=== PATIENT | male | born 1965 | race Caucasian/White ===

== ENCOUNTER 2022-05-09 13:17 | Inpatient (IN) | payer BC ==
[~2022-05-09] VITALS: Ht 185.4 cm; Wt 78.0 kg
[2022-05-09] MEDS ORDERED: SODIUM CHLORIDE 0.9% 500ML 500 ML IV ONE (13:30)
[2022-05-09 13:54] LABS: BASOPHILS % 0.5 % (0.0-1.0); EOSINOPHILS # (AUTO) 0.5 (0.0-0.4); EOSINOPHILS % 5.6 % (0.0-6.0); HEMOGLOBIN 15.5 g/dL (14.0-18.0); LYMPHOCYTES % 25.3 % (18.0-39.1); MEAN CORPUSCULAR HEMOGLOBIN 30.3 pg (28-32); MEAN CORPUSCULAR VOLUME 97.8 fL (81-99); MONOCYTES # (AUTO) 0.5 (0.2-0.8); MONOCYTES % 6.4 % (4.4-11.3); PLATELET COUNT 272 x10e3/uL (140-360); RED BLOOD COUNT 5.11 x10e6/uL (4.3-5.7); RED CELL DISTRIBUTION WIDTH 12.4 % (11.7-14.4)
[2022-05-09 13:59] LABS: INR 0.97; PROTHROMBIN TIME 13.1 seconds (11.9-14.5)
[2022-05-09 14:00] LABS: PARTIAL THROMBOPLASTIN TIME 32.3 seconds (23.8-35.5)
[2022-05-09 14:11] LABS: ANION GAP 14.2 mmol/L (8-16); CALCIUM 9.4 mg/dL (8.4-10.2); CREATININE, SERUM 0.85 mg/dL (0.72-1.25); MAGNESIUM 2.1 MG/DL (1.3-2.1); POTASSIUM 4.2 mmol/L (3.5-5.1)
[2022-05-09 14:30] LABS: CLARITY,URINE HAZY (CLEAR); COLOR,URINE YELLOW (YELLOW); KETONES,URINE NEGATIVE (NEGATIVE); LEUKOCYTE ESTERASE ,URINE NEGATIVE (NEGATIVE); NITRITE,URINE NEGATIVE (NEGATIVE); PROTEIN,URINE DIPSTICK NEGATIVE (NEGATIVE)
[2022-05-09 14:31] LABS: BACTERIA,URINE FEW /HPF; EPITHELIAL CELLS,URINE FEW /LPF; RBC,URINE 0-5 /HPF (0-5); URINE UROBILINOGEN 0.2 mg/dL (0.2 - 1); WBC,URINE (MAN) 0-5 /HPF (0-5)
[2022-05-09 16:06] LABS: CREATINE KINASE MB 0.9 ng/mL (0-5.0)
[2022-05-09 17:15] VITALS: BP 123/78
[2022-05-09 17:17] VITALS: BP 123/78
[2022-05-09 17:27] VITALS: BP 123/78
[2022-05-09] MEDS ORDERED: CARVEDILOL3.125 MG PO (17:27)
[2022-05-09] MEDS ORDERED: PROVENTIL HFA6.7 GM INH (17:27)
[2022-05-09] MEDS ORDERED: NITROGLYCERIN0.4 MG SL (17:27)
[2022-05-09] MEDS ORDERED: ROSUVASTATIN CA40 MG PO (17:27)
[2022-05-09] MEDS ORDERED: LOSARTAN POTASS25 MG PO (17:27)
[2022-05-09] MEDS ORDERED: ASPIRIN EC81 MG PO (17:27)
[2022-05-09] MEDS ORDERED: CLOPIDOGREL75 MG PO (17:27)
[2022-05-09] MEDS: FAMOTIDINE 20 MG/2 ML VIAL IV SCH (17:32)
[2022-05-09] MEDS: METOPROLOL TARTRATE 25 MG TAB PO SCH (17:33)
[2022-05-09 19:25] VITALS: BP 141/86
[2022-05-09 20:42] VITALS: BP 141/86
[2022-05-09] MEDS ORDERED: POLYETHYLENE GLYCOL 3350 17 GM PACK PO PRN (22:30)
[2022-05-09] MEDS ORDERED: ONDANSETRON HCL INJ 2MG/ML 2ML 2 MG/ML VIAL IV PRN (22:30)
[2022-05-09] MEDS ORDERED: HYDRALAZINE HCL 20 MG/ML VIAL IV PRN (22:30)
[2022-05-09] MEDS ORDERED: ACETAMINOPHEN 325 MG TAB PO PRN (22:30)
[2022-05-10] VITALS (7 sets, daily range): BP systolic 125–145; BP diastolic 77–87
[2022-05-10] MEDS: METOPROLOL TARTRATE 25 MG TAB PO SCH ×3 (03:10→21:18)
[2022-05-10] MEDS: FAMOTIDINE 20 MG/2 ML VIAL IV SCH (04:28)
[2022-05-10 05:56] LABS: BASOPHILS # (AUTO) 0.1 (0.0-0.1); BASOPHILS % 0.6 % (0.0-1.0); EOSINOPHILS # (AUTO) 0.4 (0.0-0.4); EOSINOPHILS % 4.5 % (0.0-6.0); HEMATOCRIT 44.7 % (38.2-49.6); HEMOGLOBIN 14.1 g/dL (14.0-18.0); LYMPHOCYTES # (AUTO) 2.5 (1.0-3.2); LYMPHOCYTES % 26.2 % (18.0-39.1); MEAN CORPUSCULAR HEMOGLOBIN 30.3 pg (28-32); MEAN CORPUSCULAR HGB CONC 31.5 g/dL (31-35); MEAN CORPUSCULAR VOLUME 95.9 fL (81-99); MONOCYTES # (AUTO) 0.6 (0.2-0.8); MONOCYTES % 6.5 % (4.4-11.3); NEUTROPHILS % 61.9 % (38.7-80.0); PLATELET COUNT 251 x10e3/uL (140-360); RED BLOOD COUNT 4.66 x10e6/uL (4.3-5.7); RED CELL DISTRIBUTION WIDTH 12.2 % (11.7-14.4)
[2022-05-10 06:19] LABS: ALBUMIN 3.4 g/dL (3.5-5.0); CALCIUM 8.7 mg/dL (8.4-10.2); CHOL/HDL RATIO 4.3 (3.9-4.7); CREATININE, SERUM 0.77 mg/dL (0.72-1.25)
[2022-05-10 06:52] LABS: CREATINE KINASE MB 0.7 ng/mL (0-5.0)
[2022-05-10 07:07] LABS: PHOSPHORUS 3.1 MG/DL (2.3-4.7)
[2022-05-10] MEDS: ASPIRIN 81 MG ENTERIC COATED PO SCH (07:26)
[2022-05-10] MEDS: FAMOTIDINE 20 MG TAB PO SCH ×2 (07:26→16:08)
[2022-05-10 07:27] LABS: THYROID STIMULATING HORMONE 2.302 uIU/mL (0.350-4.940)
[2022-05-10] MEDS: DOCUSATE SODIUM 100 MG CAP PO SCH ×2 (07:27→16:08)
[2022-05-10] MEDS: NICOTINE 14 MG/EA PATCH TOP SCH (08:43)
[2022-05-10] MEDS: CLOPIDOGREL BISULFATE 75 MG TAB PO SCH (08:48)
[2022-05-10] MEDS ORDERED: REGADENOSON 0.4 MG/5 ML SYR IV ONE (09:49)
[2022-05-10] MEDS: SODIUM CHLORIDE 0.9% 1000ML 1,000 ML IV SCH (18:24)
[2022-05-11] VITALS: BP 141/90
[2022-05-11 05:34] LABS: BASOPHILS # (AUTO) 0.1 (0.0-0.1); BASOPHILS % 0.7 % (0.0-1.0); EOSINOPHILS # (AUTO) 0.5 (0.0-0.4); EOSINOPHILS % 5.2 % (0.0-6.0); HEMATOCRIT 42.1 % (38.2-49.6); HEMOGLOBIN 14.3 g/dL (14.0-18.0); LYMPHOCYTES # (AUTO) 2.6 (1.0-3.2); LYMPHOCYTES % 27.5 % (18.0-39.1); MEAN CORPUSCULAR HEMOGLOBIN 30.4 pg (28-32); MEAN CORPUSCULAR VOLUME 89.6 fL (81-99); MONOCYTES # (AUTO) 0.7 (0.2-0.8); MONOCYTES % 6.8 % (4.4-11.3); NEUTROPHILS # (AUTO) 5.7 (2.1-6.9); NEUTROPHILS % 59.5 % (38.7-80.0); PLATELET COUNT 245 x10e3/uL (140-360); RED CELL DISTRIBUTION WIDTH 12.3 % (11.7-14.4)
[2022-05-11 05:46] VITALS: BP 133/81
[2022-05-11 06:04] LABS: ANION GAP 14.7 mmol/L (8-16); CALCIUM 8.6 mg/dL (8.4-10.2); CREATININE, SERUM 0.82 mg/dL (0.72-1.25); POTASSIUM 3.7 mmol/L (3.5-5.1)
[2022-05-11] MEDS: SODIUM CHLORIDE 0.9% 1000ML 1,000 ML IV SCH (07:15)
[2022-05-11 08:25] VITALS: BP 134/78
[2022-05-11] MEDS: NICOTINE 14 MG/EA PATCH TOP SCH (08:54)
[2022-05-11] MEDS: DOCUSATE SODIUM 100 MG CAP PO SCH ×2 (08:54→16:05)
[2022-05-11] MEDS: ASPIRIN 81 MG ENTERIC COATED PO SCH (08:54)
[2022-05-11] MEDS: METOPROLOL TARTRATE 25 MG TAB PO SCH (08:54)
[2022-05-11] MEDS: CLOPIDOGREL BISULFATE 75 MG TAB PO SCH (08:54)
[2022-05-11] MEDS: FAMOTIDINE 20 MG TAB PO SCH ×2 (08:54→16:05)
[2022-05-11] MEDS ORDERED: ONDANSETRON HCL 4 MG ORAL DISINTEGRATING TAB PO PRN (11:00)
[2022-05-11] MEDS ORDERED: MIDAZOLAM HCL 2 MG/2 ML VIAL ONE (11:31)
[2022-05-11] MEDS ORDERED: FENTANYL CITRATE/PF 100MCG/2 ML INJ ONE (11:31)
[2022-05-11] MEDS ORDERED: HEPARIN SOD/SOD CHLORIDE 2,000 ML ONE (11:31)
[2022-05-11] MEDS ORDERED: LIDOCAINE HCL 1% 30ML-PF VIAL ONE (11:31)
[2022-05-11] MEDS ORDERED: HEPARIN SOD (PORCINE) 1000 UNIT/ML 30ML ONE ×2 (11:31→11:41)
[2022-05-11] MEDS ORDERED: SODIUM CHLORIDE 0.9% 1000ML 1,000 ML ONE (11:32)
[2022-05-11] MEDS ORDERED: IOPAMIDOL 370 MG/ML 100 ML INFUS..BTL INJ ONE (11:32)
[2022-05-11] MEDS ORDERED: NITROGLYCERIN/D5W 200 MCG/ML 250 ML ONE (11:32)
[2022-05-11] MEDS ORDERED: SODIUM CHLORIDE 0.9% 1000ML 1,000 ML IV SCH (12:30)
[2022-05-11] MEDS ORDERED: ONDANSETRON HCL INJ 2MG/ML 2ML 2 MG/ML VIAL IV PRN (12:30)
[2022-05-11 12:46] VITALS: BP 133/83
[2022-05-11] MEDS ORDERED: Docusate Sodium PO (13:51)
[2022-05-11] MEDS ORDERED: FAMOTIDINE20 MG PO (13:51)
[2022-05-11] MEDS ORDERED: NICODERM CQ1 EAC1 TOP (13:51)
[2022-05-11] MEDS ORDERED: ACETAMINOPHEN325 M1 PO (13:51)
[2022-05-11] MEDS ORDERED: ONDANSETRON ODT4 MG PO (13:51)
[2022-05-11] MEDS ORDERED: LOPRESSOR25 MG PO (13:51)
[2022-05-11] MEDS ORDERED: MIRALAX17 GM PO (13:51)
[2022-05-11 16:25] VITALS: BP 135/82
== END 2022-05-11 18:44 | disposition home or self-care (01) | DRG 287 ==
LOC: ER 13:31 → ERHOLD 16:02 → MED/SURG3 17:04 → OBSVTOIN 05-11 10:07
PROVIDERS: ADMIT Internal Medicine; ATTEND Internal Medicine
PROC: 4A023N7 Measurement of Cardiac Sampling and Pressure, Left Heart, Percutaneous Approach (ICD-10-PCS; principal; 2022-05-11)
PROC: B2111ZZ Fluoroscopy of Multiple Coronary Arteries using Low Osmolar Contrast (ICD-10-PCS; 2022-05-11)
PROC: B2151ZZ Fluoroscopy of Left Heart using Low Osmolar Contrast (ICD-10-PCS; 2022-05-11)
DX: R55 Syncope and collapse (principal); I25.10 Atherosclerotic heart disease of native coronary artery without angina pectoris; Z95.5 Presence of coronary angioplasty implant and graft; I25.2 Old myocardial infarction; E78.5 Hyperlipidemia, unspecified; E78.00 Pure hypercholesterolemia, unspecified; J44.9 Chronic obstructive pulmonary disease, unspecified; Z86.73 Personal history of transient ischemic attack (TIA), and cerebral infarction without residual deficits; Z87.891 Personal history of nicotine dependence; I11.9 Hypertensive heart disease without heart failure; Z95.0 Presence of cardiac pacemaker
CPT/HCPCS: 36415; 70450; 71045; 78452; 80048; 80053; 80061; 81001; 82550; 82553; 83036; 83735; 83880; 84100; 84443; 84484; 85025; 85610; 85730; 87086; 93005; 93017; 93306; 93458; 93880; 94799; 99152; 99284; A9502; C1766; C1769; C1887; C1894; G0378; J1644; J2001; J2250; J3010; J7030; J7040; Q9967